=== PATIENT | female | born 1965 | race Caucasian/White ===

== ENCOUNTER 2019-08-01 18:09 | Emergency (ER) | payer BC ==
[2019-08-01 19:18] VITALS: BP 159/112
[2019-08-01] MEDS ORDERED: predniSONE TAB* 10 MG PO ONE (20:49)
[2019-08-01] MEDS ORDERED: Cyclobenzaprine TAB* 10 MG PO ONE (20:49)
--- NOTE | 2019-08-09 15:00 | UC ---
Back Pain HPI - HPI Summary HPI Summary: 54 year old female with neck pain. Started ~ 1 week ago after swinging ax cutting wood. NO trauma, no falls. Pain b/l neck, worse on right side. no numbness, tingling. - History of Current Complaint Chief Complaint: UCUpperExtremity Stated Complaint: NECK PAIN Time Seen by Provider: 08/01/19 20:11 Hx Obtained From: Patient Hx Last Menstrual Period: 08/01/16 ?: No Onset/Duration: Sudden Onset, Lasting Days Timing: Lasting Hours Severity Initially: Moderate Severity Currently: Moderate Pain Intensity: 6 Pain Scale Used: 0-10 Numeric Back Pain: Is Discrete @ - neck, right sided - Allergies/Home Medications Allergies/Adverse Reactions: Allergies Allergy/AdvReac Type Severity Reaction Status Date / Time aspirin Allergy Unknown Unknown Verified 08/01/19 19:19 Reaction Details Penicillins Allergy Unknown Unknown Verified 08/01/19 19:19 Reaction Details latex Allergy Rash Verified 08/01/19 19:19 Home Medications: Home Medications Baclofen TAB* [Lioresal TAB*] 10 mg PO ONCE PRN 08/01/19 [History Confirmed 02/12] Naproxen Sodium [Aleve] 220 mg PO ONCE PRN 08/01/19 [History Confirmed 08/01/19] PMH/Surg Hx/FS Hx/Imm Hx Previously Healthy: Yes - Surgical History Surgical History: Yes Surgery Procedure, Year, and Place: c section - Family History Known Family History: Positive: Hypertension - Social History Alcohol Use: Occasionally Substance Use Type: None Smoking Status (MU): Never Smoked Tobacco - Immunization History Most Recent Influenza Vaccination: not utd Most Recent Tetanus Shot: utd Most Recent Pneumonia Vaccination: none Review of Systems All Other Systems Reviewed And Are Negative: Yes Constitutional: Positive: Negative Gastrointestinal: Positive: Negative Is Patient Immunocompromised?: No Physical Exam Triage Information Reviewed: Yes Appearance: Well-Appearing, Well-Nourished, Pain Distress Vital Signs: Initial Vital Signs Temp 97 F 08/01/19 19:11 Pulse 74 08/01/19 19:11 Resp 20 08/01/19 19:11 BP 159/112 08/01/19 19:11 Pulse Ox 99 08/01/19 19:11 Vital Signs Reviewed: No Eyes: Positive: Conjunctiva Clear ENT: Positive: Hearing grossly normal Neck: Positive: Supple, No Lymphadenopathy. Negative: Nuchal Rigidity, Enlarged Nodes @ Musculoskeletal: Positive: Strength Intact, ROM Limited @ - Cerivcal - pain with FF, movement side to side. TTP over paraspinal muscles extending into trap on right.. Negative: No Edema, Edema @ Neurological Exam: Normal Psychological Exam: Normal Skin Exam: Normal Back Pain Course/Dx - Course Course Of Treatment: - Prednisone to decrease muscle spasms- 30mg x 3 days, then naproxen/ Alleve 250mg twice daily x 2 days - Valium as needed for muscle spasms at bedtime - Warm compresses as needed for relief - Tylenol as needed for pain - Gentle stretching, range of motion exercises. Gradually increase to lifting , pulling gently. - Differential Dx/Diagnosis Provider Diagnosis: Cervical strain, acute Discharge ED - Sign-Out/Discharge Documenting (check all that apply): Patient Departure All imaging exams completed and their final reports reviewed: No Studies - Discharge Plan Condition: Good Disposition: HOME Prescriptions: diazePAM [Valium] 5 mg PO BEDTIME PRN #2 tablet MDD 1 PRN Reason: muscle spasms predniSONE TAB* [Deltasone 10 MG TAB*] 3 tab PO DAILY #6 tab Patient Education Materials: Muscle Spasm (ED) Referrals: Edwin Lopez MD [Primary Care Provider] - Additional Instructions: - Prednisone to decrease muscle spasms- 30mg x 3 days, then naproxen/ Alleve 250mg twice daily x 2 days - Valium as needed for muscle spasms at bedtime - Warm compresses as needed for relief - Tylenol as needed for pain - Gentle stretching, range of motion exercises. Gradually increase to lifting , pulling gently. - Billing Disposition and Condition Condition: GOOD Disposition: Home
== END 2019-08-01 20:54 | disposition home or self-care (01) ==
LOC: UCEAST 18:09
DX: S16.1XXA Strain of muscle, fascia and tendon at neck level, initial encounter (principal); X58.XXXA Exposure to other specified factors, initial encounter; Y92.9 Unspecified place or not applicable; Z88.0 Allergy status to penicillin; Z88.6 Allergy status to analgesic agent; Z91.040 Latex allergy status
CPT/HCPCS: 99212; A9270-GY; G0463; J7512